=== PATIENT | female | born 1945 | race Caucasian/White ===

== ENCOUNTER → 2019-04-24 | Day surgery (SDC) | payer MEDICARE, BC ==
[~2019-04-24] MED LIST: ACETAMINOPHEN 1,000 MG/100 ML BTL IVPB ONE; BUPIVACAINE 0.5% W/EPI MPF 30 ML VIAL SQ ONE; CEFAZOLIN 1G VIAL IR ONE; CEFAZOLIN 2 Gram 2 GM/50 ML BAG IVPB ONE; FAMOTIDINE 20MG TABLET PO ONE; FENTANYL PF 100MCG/2ML VIAL IV ONE; HYDROCODONE/APAP 7.5/325MG TABLET PO ONE; LIDOCAINE 1% W/EPI 1:100,000 MDV 20 ML VIAL SQ ONE; LIDOCAINE 2% MDV (20MG/ML) 20ML VIAL IV ONE; MECLIZINE 25 MG TABLET PO ONE; METOCLOPRAMIDE 10 MG TABLET PO ONE; MIDAZOLAM HCL 2MG/2ML VIAL IV ONE; PROPOFOL 10 MG/ML VIAL IV ONE; RINGERS SOLUTION,LACTATED 1,000 ML IV ONE
--- NOTE | 2019-04-24 06:44 | History and Physical - [place] ---
CHIEF COMPLAINT/HISTORY OF CHIEF COMPLAINT: This patient presents with a history of a post lumbar laminectomy radiculopathy. Due to the failure of therapies a spinal cord stimulator trial was conducted on 04/04/19 with 75+% pain control. Due to the failure of all therapies and the success of the trial the patient presents for implantation of a permanent system. PAST MEDICAL HISTORY: Hypothyroidism, sleep apnea, cardiac arrhythmia, bladder dysfunction, reflux esophagitis, degenerative arthritis, and depression. PAST SURGICAL HISTORY: Multiple, list to be provided. MEDICATIONS ON ADMISSION: List to be provided. ALLERGIES: List to be provided. FAMILY/PSYCHOSOCIAL HISTORY: Social history - Smoking. Family history - Thyroid disease, cerebrovascular disease, and hypertension. SYSTEMS REVIEW: The patient is appropriate in no acute distress. PHYSICAL EXAMINATION: Height is 5'3", weight is 230. No vital signs. HEENT: Within normal limits. LUNGS: Clear. HEART: Rapid and regular. ABDOMEN: Nontender. MUSCULOSKELETAL: Examination of the musculoskeletal system shows diffuse tenderness throughout the lumbar spine. Range of motion does produce pain across the front and back surface of both legs. There is mild motor and sensory abnormalities to both legs. Ambulation - No assistive device utilized. NEUROLOGIC: Cranial nerves are intact. IMPRESSION: POST LUMBAR LAMINECTOMY SYNDROME, ICD-10 CODE M96.1 WITH RADICULOPATHY, ICD-10 CODE M54.16 AND M54.17. PLAN: After a successful stimulator trial and the failure of other therapies, the patient presents today for implantation of a permanent system. The procedure will be considered outpatient although an overnight stay will be evaluated. JOB NUMBER: [id number] MTDD
--- NOTE | 2019-04-26 08:01 | Operative Note ---
DATE OF SURGERY: 04/24/2019 PREOPERATIVE DIAGNOSIS: Post lumbar laminectomy syndrome, ICD10 code M96.1 with lumbar radiculopathy, ICD10 code M54.16 and M54.17. OPERATION: 1. Fluoroscopic-guided epidural access left T11-12, placement of spinal cord stimulator lead 1 [employer] Infinion 16, 6 electrodes positioned left T7. 2. Fluoroscopic-guided epidural access left T12-L1, placement of spinal cord stimulator lead 2 [employer] Infinion 16, 6 electrodes positioned right T7. 3. Complex programming of lead 1 over 20 minutes followed by complex programming of lead 2 over 20 minutes. 4. Incision and subcutaneous dissection and anchoring of lead 1 and lead 2 to supraspinous fascia with a [employer] locking anchor and nonabsorbable suture. 5. Incision and subcutaneous dissection and creation of subcutaneous pouch at left flank, placement of generator identified as [employer] programmable rechargeable WaveWriter. 6. Tunneling between lead pouch, placement of external portion of each lead into generator pouch, each lead interfaced with generator. 7. Placement of generator pouch, placement of leads into their own pouch, then closure of both incisions using Stratafix suture 2-0 fascia, 3-0 skin, and Dermabond closure. 8. Complex recovery room programming internal generator home use 2 stimulators 20 minutes. SURGEON: Leonel Arteaga, ANESTHESIA: Local with sedation. ANESTHESIA PROVIDER: Ebony Bosch INDICATION: This patient presents with a history of intractable post lumbar laminectomy radiculopathy. Due to the failure of therapies and the success of a trial, the patient presents today for implantation of permanent system. PROCEDURE: Intravenous line, vital sign monitoring, IV sedation. Prepped and draped with sterile technique. Under imaging, the epidural interspace left of midline at T11-12 and 12-1 were both marked, skin infiltrated at each. Then using 2 separate curved access Epimed needles, loss of resistance, the space was accessed. Atraumatic. No blood, no CSF. At 11-12, spinal cord stimulator lead 1, a [employer] Infinion 16, 6 electrodes postitioned left of T7. With the access at 12-1, spinal cord stimulator lead 2, [employer] Infinion 16, 6 electrodes positioned right at T7. Complex programming of lead 1 over 20 minutes followed by complex programming of lead 2 over 20 minutes resulting in complete pattern stimulation across the back and into the legs. Patient indicating we had all the areas of the pain. The skin below both needles was infiltrated with local. Incision was made and subcutaneous dissection was conducted to supraspinous fascia. The needles were removed and then each lead was anchored to the supraspinous fascia with a Crunched locking anchor and nonabsorbable suture. The questions had been repeated with the same responses. At the left flank, a site picked by the patient for the generator, [employer] programmable rechargeable, skin infiltrated, incision made, and subcutaneous dissection was conducted to form a pouch suitable for the size and depth of the generator, a [employer] programmable rechargeable. The leads were then tunneled into the pouch and then each lead was interfaced to the generator. Antibiotic irrigation and Bovie for hemostasis. The generator and its connections were placed into the pouch. The leads were placed into their own pouch, and then both incisions were closed using Stratafix suture, 2-0 fascia, and 3-0 skin and then a 2-0 Stratafix and 3- 0 Stratafix for skin. Dermabond closure was then used to secure the edges of both wounds. She was transported to recovery room stable. No side effects from the procedure or sedation. When fully awake and alert, complex programming of the 2 leads and the internal generator performed in recovery over 20 minutes reestablishing stimulation and pain control to all the appropriate areas. The patient was requesting discharge home. DISCHARGE INSTRUCTIONS: 1. The sites to remain clean and dry. Although the Dermabond will allow showering, she should not sit in water. 2. The office will contact the patient in the next 12-24 hours to set up a time in the next 7-10 days to evaluate the sites. Until then, she is to keep her activities controlled. All other instructions provided, numbers to contact if problems given. She will be discharged. HANG
== END | disposition home or self-care (01) ==
LOC: SUR 07:27
PROVIDERS: ATTEND Pain Medicine Interventional Pain Medicine
DX: M96.1 Postlaminectomy syndrome, not elsewhere classified (principal); M54.16 Radiculopathy, lumbar region; M54.17 Radiculopathy, lumbosacral region; I10 Essential (primary) hypertension; E78.00 Pure hypercholesterolemia, unspecified; F32.9 Major depressive disorder, single episode, unspecified; E03.9 Hypothyroidism, unspecified; R01.1 Cardiac murmur, unspecified; G47.33 Obstructive sleep apnea (adult) (pediatric); E66.9 Obesity, unspecified; Z86.711 Personal history of pulmonary embolism
CPT/HCPCS: 72020; 95972; C1820; C1883; J0690; J7120